=== PATIENT | female | born 1955 ===

== ENCOUNTER 2018-04-05 16:39 | Emergency (ER) | payer BC ==
[~2018-04-05] VITALS: Ht 165.1 cm; Wt 95.3 kg
[2018-04-05] MEDS ORDERED: XANAX2 MG (17:01)
[2018-04-05] MEDS ORDERED: SYNTHROID50 MCG (17:01)
[2018-04-05] MEDS ORDERED: LYRICA50 MG (17:02)
[2018-04-05] MEDS ORDERED: OXYCODONE HCL20 M1 (17:02)
[2018-04-05] MEDS ORDERED: TRIAZOLAM0.25 MG (17:03)
[2018-04-05] MEDS ORDERED: TRAMADOL HCL50 MG (17:03)
[2018-04-05] MEDS ORDERED: LAMICTAL25 MG (17:04)
== END 2018-04-05 21:06 | disposition home or self-care (01) ==
LOC: ER 16:39
DX: M79.7 Fibromyalgia (principal); M54.31 Sciatica, right side; N39.0 Urinary tract infection, site not specified; R10.2 Pelvic and perineal pain; M79.661 Pain in right lower leg